=== PATIENT | female | born 1990 | race Two or more races ===

== ENCOUNTER 2024-05-19 21:34 | Emergency (ER) | payer MEDICAID, SELFPAY ==
[2024-05-19 21:36] VITALS: BMI 27.8
[2024-05-19 21:51] VITALS: BP 124/85; PULSE 84; RESP 18; TEMP 36.9; O2SAT 100
--- NOTE | 2024-05-19 21:54 | XR_ITS ---
Examination: CT brain head without contrast. 2-D sagittal coronal reconstructions Date and time of exam:May 19, 2024 1012 hrs. Comparison September 23, 2023 Indications: Onset right-sided body numbness paresthesias beginning today, diagnosis and history multiple sclerosis CTDI: vol (mGy):47.8 DLP: (mGycm):921 Technique: Multiple CT axial sections of the brain have been obtained, 5 mm slice thickness. Contrast has not been administered. 2-D sagittal, coronal reconstructions have been obtained Low dose protocols were performed. One or more of the following dose reduction techniques were used; automated exposure control, adjustment of the mA and/or KV according to patient size, use of iterative reconstruction technique. Findings: No significant ventricular enlargement. Intra-axial or extra-axial hemorrhage density is not seen. No mass effect or midline shift Basal cisterns are not remarkable. Fourth ventricle is midline. Cranial vault intact. Impression: Negative for acute hemorrhage, mass effect or midline shift Brain MRI follow-up would best confirm demyelinating disease and exclude acute ischemic change
--- NOTE | 2024-05-19 21:54 | EKG_ITS ---
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
--- NOTE | 2024-05-19 21:55 | PD.EDRME ---
Rapid Medical Screening Exam RME Arrival date/time: 05/19/24 21:34 33 yo f present to ED for c/o of right side blurry vision/tingling for 1 day I have greeted and performed a focused initial assessment of this patient. A comprehensive ED assessment and evaluation of the patient, analysis of all test results, and completion of the medical decision making process will be conducted by additional ED providers. Chief Complaint: General Adult/Misc Complain Time Seen by Provider: 05/19/24 21:43 Vital signs: Vital Signs Temperature 98.5 F 05/19/24 21:51 Pulse Rate 84 05/19/24 21:51 Respiratory Rate 18 05/19/24 21:51 Blood Pressure 124/85 H 05/19/24 21:51 Pulse Oximetry (%) 100 05/19/24 21:51 Oxygen Delivery Method Room Air 05/19/24 21:51
[2024-05-19 22:44] LABS: Basophils # (Auto) 0.1 Thou/mm3 (0.0-0.2); Basophils % (Auto) 1 % (0-2.5); Eosinophils # (Auto) 0.1 Thou/mm3 (0.0-0.5); Eosinophils % (Auto) 1 % (0-10); Hematocrit 37.8 % (36.0-46.0); Hemoglobin 13.1 g/dL (12.0-16.0); Immature Granulocytes % (Auto) 1 % (0-0); Immature Granulocytes Auto 0.08 Thou/mm3 (0.00-0.00); Lymphocytes # (Auto) 1.3 Thou/mm3 (1.0-4.8); Lymphocytes % (Auto) 12 % (10-50); Mean Corpuscular HGB Conc 34.7 g/dl (31.0-37.0); Mean Corpuscular Hemoglobin 31.1 pg (25.0-35.0); Mean Corpuscular Volume 90 fL (80-100); Monocytes # (Auto) 1.1 Thou/mm3 (0.0-0.8); Monocytes % (Auto) 10 % (0-12); Neutrophils # (Auto) 8.2 Thou/mm3 (1.8-7.7); Neutrophils % (Auto) 75 % (37-80); Nucleated Red Blood Cell % 0 /100 WBC (0); Platelet Count 201 Thou/mm3 (140-440); Red Blood Count 4.21 Miln/mm3 (4.00-5.20); White Blood Count 10.9 Thou/mm3 (3.6-11.0)
[2024-05-19 23:05] LABS: Alanine Aminotransferase 63 U/L (10-49); Albumin, Serum 4.8 gm/dL (3.5-5.0); Albumin/Globulin Ratio 1.8 (1.2-2.2); Alkaline Phosphatase 79 U/L (46-116); Anion Gap 8 (7-16); Aspartate Amino Transferase 37 U/L (0-34); BUN/Creatinine Ratio 11 Ratio (12-20); Bilirubin,Total 0.5 mg/dL (0.3-1.2); Blood Urea Nitrogen 9 mg/dL (9-23); C-Reactive Protein < 0.4 mg/dL (0.0-0.9); Carbon Dioxide 28.2 mMol/L (20.0-31.0); Chloride 101 mMol/L (98-107); Creatinine (Component) 0.8 mg/dL (0.6-1.3); Estimated Creatinine Clearance 89.3 mL/min (>60); Globulin 2.7 gm/dL (2.3-3.5); Glucose 93 mg/dL (74-106); Osmolality,Calculated 272 (275-295); Potassium 3.8 mMol/L (3.4-5.1); Sodium 137 mMol/L (136-145); Total Protein 7.5 gm/dL (5.7-8.2); Troponin I < 0.002 ng/mL (0.0-0.045); eGFR > 60 See Note
[2024-05-19 23:39] LABS: Sed Rate (ESR) 22 mm/hr (0-20)
--- NOTE | 2024-05-20 01:42 | PD.EDADULT ---
ED General RME/HPI General Chief complaint: General Adult/Misc Complain Stated complaint: RIGHT SIDE BODY NUNMBNESS SINCE YESTERDAY Time Seen by Provider: 05/19/24 21:43 Arrival date/time: 05/19/24 21:34 33 year old female present to emergency room with c/o of ongoing headache and report tingling/numbness on right side since yesterday. Denies any trauma or injury LOCATION: right side head SEVERITY: Symptoms are described as being severe with limitations on activities of daily living QUALITY: Symptoms are described as being dull or achy CONTEXT: The patient is unable to identify any inciting events. DURATION/TIMING: The symptoms started approximately ongoing, worsen since yesterday ASSOCIATED SYMPTOMS: The patient is unable to identify any other associated symptoms. MODIFYING FACTORS: The patient is unable to identify any alleviating or aggravating symptoms. PERTINENT ROS: Headache is gradual in onset, not maximal intensity at onset, not associated with syncope or presyncope, not the first or the worst, not associated with head trauma or anticoagulant use, no associated focal neurological deficits, denies associated neck pain, no recent fevers, no unexplained rashes, no recent foreign travel, immunized, no unexplained nausea or vomiting. REVIEW OF SYSTEMS: See History of Present Illness - with the exception of those mentioned in the history of present illness, all other systems reviewed and reported as negative GENERAL: In general the patient is awake, interactive, in an emergency department gurney. HEAD/EYES/EARS/NOSE/THROAT: normo-cephalic, atraumatic, mucus membranes are moist, anicteric, palpebral conjunctiva is pink, trachea is midline. CARDIOVASCULAR: regular rate and regular rhythm, no murmurs, heart sounds are not distant, strong pulses in all four extremities that are equal and symmetric bilateral upper and lower extremities, normal capillary refill. CHEST/PULMONARY: normal chest rise and fall, good air movement, clear to auscultation bilaterally, normal inspiratory to expiratory ratios without evidence of respiratory distress. NECK: No midline/Paraspinal tenderness, no step off ROM/Strenght intact No Kernig and bruzinski sign. No trauma ABDOMEN: soft, not tender, no masses appreciated BACK: normal range of motion without pain. NEUROLOGICAL: cranio-facial features are symmetric, moves all four extremities equally without obvious limitations or weakness. EXTREMITY: no tenderness to palpation over the long bones or large joints of the bilateral upper and lower extremities, no joint swelling, no joint erythema, no signs of trauma, no unilateral leg swelling and no peripheral edema. SKIN: warm, dry, well-perfused, no jaundice, no rash, no telangiectasias or petechia. PSYCH: calm, cooperative, no evidence of psychosis or agitation RME / HPI RME / HPI narrative: 05/19/24 21:34 33 yo f present to ED for c/o of right side blurry vision/tingling for 1 day I have greeted and performed a focused initial assessment of this patient. A comprehensive ED assessment and evaluation of the patient, analysis of all test results, and completion of the medical decision making process will be conducted by additional ED providers. Related Data Home Medications ?Medication ?Instructions ?Recorded ?Confirmed metformin 1,000 mg tablet,extended 1,000 mg PO QDAY 08/21/17 02/06/19 release 24hr (osmotic) ergocalciferol (vitamin D2) 1,250 50,000 unit PO DAILY 06/16/18 02/06/19 mcg (50,000 unit) capsule (Vitamin D2) selenium 50 mcg tablet 50 mcg PO QDAY multiple sclerosis 06/16/18 02/06/19 Previous Rx's ?Medication ?Instructions ?Recorded ibuprofen 800 mg tablet (IBU) 800 mg PO TID PRN pain #30 tabs 02/06/19 tramadol 50 mg tablet 50 mg PO BID #14 tabs 02/09/23 rizatriptan 10 mg tablet (Maxalt) 10 mg PO Q2H PRN migraine headache 07/07/23 #20 tabs ibuprofen 600 mg tablet 600 mg PO Q8H PRN pain #14 tabs 09/23/23 ibuprofen 600 mg tablet 600 mg PO Q8H PRN pain #20 tabs 09/24/23 Allergies Allergy/AdvReac Type Severity Reaction Status Date / Time No Known Allergies Allergy Verified 07/07/23 12:27 Course Course Course Narrative: presents with Headache. No focal neurological symptoms. Neuro exam is benign. Pt is nontoxic. VSS. Based on history and normal neurological exam I have low suspicion for intracranial tumor, intracranial bleed, meningitis, temporal arteritis, glaucoma, CO poisoning. Most likely patient has benign headache, recommend rest, hydration, and ibuprofen. Disposition: Discharge home with strict return precautions and instructions for prompt primary care follow up. Quality Measures none Orders Category Date Time Status EKG (ED ONLY) *Do not use* NOW Care 05/19/24 21:[address] head/brain wo con Stat Exams 05/19/24 21:54 Completed EKG (ED Only) Stat Exams 05/19/24 21:54 Draft CBC Stat Lab 05/19/24 22:05 Completed CMP [Comprehensive Metabolic Panel] Stat Lab 05/19/24 22:05 Completed CRP [C-Reactive Protein] Stat Lab 05/19/24 22:05 Completed ESR [Sed Rate (ESR)] Stat Lab 05/19/24 22:05 Completed Troponin I Stat Lab 05/19/24 22:05 Completed Vital Signs Vital signs: Vital Signs Temperature 98.5 F 05/19/24 21:51 Pulse Rate 84 05/19/24 21:51 Respiratory Rate 18 05/19/24 21:51 Blood Pressure 124/85 H 05/19/24 21:51 Pulse Oximetry (%) 100 05/19/24 21:51 Oxygen Delivery Method Room Air 05/19/24 21:51 Procedures -ED EKG Interpretation #1: Date of EK05/20/24 Rate: 81 Interpretation: Reviewed by me EKG Impression: Normal sinus rhythm, No acute ST-T changes, No ectopy, No ischemic changes, Normal QRS and Normal intervals MDM Patient data External records reviewed:: None Clinical information provided by:: patient Social determinants that could affect healthcare access:: none Patient has the following chronic illnesses:: headache/migraine How is presenting disease/condition affected by chronic disease/condition?: exacerbated by Evaluation data The following diagnostics were reviewed and interpreted by me:: lab results, radiology exam(s) and EKG tracing(s) Lab and/or radiology exams considered but not ordered:: none Interpretation Summary: CT: no acute findings Medications Medications considered but not ordered:: none Medication administrations:: n/a Consultations Consultation(s) initiated? (list below): No Diagnosis Differential Diagnosis ED Complaint MDM: migraine, headache temporal arteritis , TIA, Most likely diagnosis given after review of the tests above:: migraine Admission Indicated Admission indicated?: not indicated Explain why admission is indicated or not indicated:: n/a Admission Request Was there a request for admission?: No Disposition Plan Disposition Plan: Discharge Discharge Attestation Discharge Attestation: The patient and all family members were given an opportunity to ask questions and understood the discharge instructions. Discharge instructions specifically effects, indications for sooner follow up or return to the emergency department, and the expected course of current diagnosis. Patient condition: Stable Medical Decision Making Differential Diagnosis Differential Diagnosis: migraine, headache temporal arteritis , TIA, Lab Data 05/19/24 22:05 05/19/24 22:05 Labs: Lab Results 05/19/24 Range/Units 22:05 WBC 10.9 (3.6-11.0) Thou/mm3 RBC 4.21 (4.00-5.20) Miln/mm3 Hgb 13.1 (12.0-16.0) g/dL Hct 37.8 (36.0-46.0) % MCV 90 (80-100) fL MCH 31.1 (25.0-35.0) pg MCHC 34.7 (31.0-37.0) g/dl RDW Std Deviation 42.0 (36.4-46.3) fL Plt Count 201 (140-440) Thou/mm3 Neut % (Auto) 75 (37-80) % Lymph % (Auto) 12 (10-50) % [place] % (Auto) 10 (0-12) % Eos % (Auto) 1 (0-10) % Baso % (Auto) 1 (0-2.5) % Neut # (Auto) 8.2 H (1.8-7.7) Thou/mm3 Lymph # (Auto) 1.3 (1.0-4.8) Thou/mm3 [place] # (Auto) 1.1 H (0.0-0.8) Thou/mm3 Eos # (Auto) 0.1 (0.0-0.5) Thou/mm3 Baso # (Auto) 0.1 (0.0-0.2) Thou/mm3 Immature Gran # (Auto) 0.08 H (0.00-0.00) Thou/mm3 Absolute Nucleated RBC 0.00 (0.00-0.00) Thou/mm3 Immature Gran % 1 H (0-0) % Nucleated RBC % 0 (0) /100 WBC ESR 22 H (0-20) mm/hr Sodium 137 (136-145) mMol/L Potassium 3.8 (3.4-5.1) mMol/L Chloride 101 (98-107) mMol/L Carbon Dioxide 28.2 (20.0-31.0) mMol/L Anion Gap 8 (7-16) BUN 9 (9-23) mg/dL Creatinine 0.8 (0.6-1.3) mg/dL Estim Creat Clear Calc 89.3 (>60) mL/min eGFR > 60 (60 - ) See Note BUN/Creatinine Ratio 11 L (12-20) Ratio Glucose 93 (74-106) mg/dL Calculated Osmolality 272 L (275-295) Calcium 10.0 (8.3-10.6) mg/dL Corrected Calcium 10.0 (8.5-10.1) mg/dL Total Bilirubin 0.5 (0.3-1.2) mg/dL AST 37 H (0-34) U/L ALT 63 H (10-49) U/L Alkaline Phosphatase 79 (46-116) U/L Troponin I < 0.002 (0.0-0.045) ng/mL C-Reactive Prot, Quant < 0.4 (0.0-0.9) mg/dL Total Protein 7.5 (5.7-8.2) gm/dL Albumin 4.8 (3.5-5.0) gm/dL Globulin 2.7 (2.3-3.5) gm/dL Albumin/Globulin Ratio 1.8 (1.2-2.2) Discharge Plan Plan Patient Disposition: HOME (Self Care) Health Concerns: Follow with PMD as directed Take tylenol or motrin as need Return to ED if sx worsen Prescriptions/Referrals Prescriptions/Med Rec: No Action ibuprofen [IBU] 800 mg tablet 800 mg PO TID PRN (Reason: pain) Qty: 30 0RF metformin 1,000 mg Tablet Extended Release 24 Hr 1,000 mg PO QDAY selenium 50 mcg Tablet 50 mcg PO QDAY ergocalciferol (vitamin D2) [Vitamin D2] 50,000 unit Capsule 50,000 unit PO DAILY rizatriptan [Maxalt] 10 mg tablet 10 mg PO Q2H MDD max of 3 tabs per day PRN (Reason: migraine headache) Qty: 20 0RF Rx Instructions: do not exceed 3 doses per 24 hrs ibuprofen 600 mg tablet 600 mg PO Q8H PRN (Reason: pain) Qty: 14 0RF ibuprofen 600 mg tablet 600 mg PO Q8H PRN (Reason: pain) Qty: 20 0RF tramadol 50 mg tablet 50 mg PO BID Qty: 14 0RF Referrals: Rocky López MD [Primary Care Provider] - In 1 week Problem List Clinical Impression: Migraine Patient/Caregiver Discharge Instructions Education Materials: Headache Migraine Meds Lifestyle Print Language: Urdu Stand Alone Forms: Lydia Award Info., Patient Portal Info Letter
[2024-05-20 01:49] VITALS: RESP 18
== END 2024-05-20 01:50 | disposition home or self-care (01) ==
PROVIDERS: Physician Assistant; Emergency Provider Emergency Medicine; PCP Family Medicine
DX: G43.909 Migraine, unspecified, not intractable, without status migrainosus (principal); R20.2 Paresthesia of skin; R20.0 Anesthesia of skin; G35 Multiple sclerosis
CPT/HCPCS: 36415; 70450; 80053; 84484; 85025; 85652; 86140; 93005; 99284

== ENCOUNTER → 2024-12-02 | Outpatient (CLI) | payer OTHER, SELFPAY ==
--- NOTE | 2024-12-02 15:01 | XR_ITS ---
Examination: Ribs, left, with PA chest, 4 views Technique: Chest PA, RIBS AP, RPO, LPO, 4 views Exam date and time: December 12, 2024 1520 hours INDICATIONS: Patient fell today with injury to the left ribs, rib pain FINDINGS: Normal heart size No pneumothorax. Mild osteopenia. No acute rib fractures IMPRESSION:: No pneumothorax pulmonary contusion or hemothorax No acute rib fractures
--- NOTE | 2024-12-02 15:01 | XR_ITS ---
Examination: Left elbow 3 views Technique: Elbow AP, oblique, lateral 3 views Exam date and time: December 12, 2024 1529 hours INDICATIONS: Patient fell today with injury to the elbow, elbow pain FINDINGS: No elbow fracture or dislocation No elbow effusion IMPRESSION: Negative for fracture.
== END | disposition home or self-care (01) ==
PROVIDERS: PCP Physician Assistant; Referring Provider Family Medicine; Visit Provider Family Medicine
DX: S20.212A Contusion of left front wall of thorax, initial encounter (principal); S59.902A Unspecified injury of left elbow, initial encounter; W19.XXXA Unspecified fall, initial encounter
CPT/HCPCS: 71101; 73080

== ENCOUNTER → 2025-01-02 | Outpatient (CLI) | payer OTHER, SELFPAY ==
--- NOTE | 2025-01-02 15:01 | XR_ITS ---
Examination: Shoulder,left, 3 views Technique: Shoulder AP internal rotation, AP external rotation, Y view shoulder, 3 views Exam date and time :January 02, 2025 1531 hours INDICATIONS: Patient fell one month ago with injury to the shoulder, shoulder pain. FINDINGS: Mild osteopenia. No shoulder fracture or dislocation IMPRESSION: No shoulder fracture or dislocation.
== END | disposition home or self-care (01) ==
PROVIDERS: PCP Family Medicine; Referring Provider Family Medicine; Visit Provider Family Medicine
DX: S49.92XA Unspecified injury of left shoulder and upper arm, initial encounter (principal); W19.XXXA Unspecified fall, initial encounter
CPT/HCPCS: 73030

== ENCOUNTER 2025-02-08 11:22 | Emergency (ER) | payer MEDICAID, SELFPAY ==
[2025-02-08 11:34] VITALS: BP 135/69; PULSE 97; RESP 18; TEMP 37.1; O2SAT 98; BMI 28.3
--- NOTE | 2025-02-08 11:35 | EDRME_ITS ---
Rapid Medical Screening Exam [facility] Arrival date/time: 02/08/25 11:22 34-year-old female with history of MS presents to the emergency department today for complaint of headache and blurred vision ongoing x 2 days Chief Complaint: Headache Vital signs: Vital Signs Temperature 98.7 F 02/08/25 11:34 Pulse Rate 97 02/08/25 11:34 Respiratory Rate 18 02/08/25 11:34 Blood Pressure 135/69 H 02/08/25 11:34 Pulse Oximetry (%) 98 02/08/25 11:34 Oxygen Delivery Method Room Air 02/08/25 11:34
--- NOTE | 2025-02-08 11:35 | XR_ITS ---
Examination: CT brain head without contrast. 2-D sagittal coronal reconstructions Date and time of exam: February 08, 2025, 12 noon COMPARISON: May 19, 2024 INDICATIONS: Onset generalized head pain today CTDI: vol (mGy): 47.8 DLP: (mGycm): 982 Technique: Multiple CT axial sections of the brain have been obtained, 5 mm slice thickness. Contrast has not been administered. 2-D sagittal, coronal reconstructions have been obtained Low dose protocols were performed. One or more of the following dose reduction techniques were used; automated exposure control, adjustment of the mA and/or KV according to patient size, use of iterative reconstruction technique. Findings: No significant ventricular enlargement. Intra-axial or extra-axial hemorrhage density is not seen. No mass effect or midline shift Basal cisterns are not remarkable. Fourth ventricle is midline. Cranial vault intact. Impression: Negative for acute hemorrhage, mass effect or midline shift
[2025-02-08] MEDS: METOCLOPRAMIDE 5 MG TABLET 10 MG PO (11:42)
[2025-02-08] MEDS: HYDROcodone/APAP 5/325 TABLET 1 TAB PO (11:42)
[2025-02-08 12:05] LABS: Basophils # (Auto) 0.1 Thou/mm3 (0.0-0.2); Basophils % (Auto) 1 % (0-2.5); Eosinophils # (Auto) 0.1 Thou/mm3 (0.0-0.5); Eosinophils % (Auto) 1 % (0-10); Hematocrit 44.2 % (36.0-46.0); Hemoglobin 15.2 g/dL (12.0-16.0); Immature Granulocytes Auto 0.04 Thou/mm3 (0.00-0.00); Lymphocytes # (Auto) 1.4 Thou/mm3 (1.0-4.8); Lymphocytes % (Auto) 19 % (10-50); Mean Corpuscular HGB Conc 34.4 g/dl (31.0-37.0); Mean Corpuscular Hemoglobin 31.1 pg (25.0-35.0); Mean Corpuscular Volume 91 fL (80-100); Monocytes # (Auto) 0.7 Thou/mm3 (0.0-0.8); Monocytes % (Auto) 10 % (0-12); Neutrophils # (Auto) 4.9 Thou/mm3 (1.8-7.7); Neutrophils % (Auto) 68 % (37-80); Nucleated Red Blood Cell # 0.00 Thou/mm3 (0.00-0.00); Nucleated Red Blood Cell % 0 /100 WBC (0); Platelet Count 228 Thou/mm3 (140-440); RDW Standard Deviation 41.2 fL (36.4-46.3); Red Blood Count 4.88 Miln/mm3 (4.00-5.20); White Blood Count 7.2 Thou/mm3 (3.6-11.0)
[2025-02-08 12:22] LABS: HCG,Qualitative Serum Negative
[2025-02-08 12:24] LABS: Sed Rate (ESR) 19 mm/hr (0-20)
[2025-02-08 12:43] LABS: Alanine Aminotransferase 45 U/L (10-49); Albumin, Serum 5.0 gm/dL (3.5-5.0); Albumin/Globulin Ratio 1.8 (1.2-2.2); Alkaline Phosphatase 86 U/L (46-116); Anion Gap 10 (7-16); Aspartate Amino Transferase 27 U/L (0-34); BUN/Creatinine Ratio 12 Ratio (12-20); Bilirubin,Total 1.1 mg/dL (0.3-1.2); Blood Urea Nitrogen 11 mg/dL (9-23); Calcium 9.8 mg/dL (8.3-10.6); Calcium (Corrected) 9.8 mg/dL (8.5-10.1); Carbon Dioxide 28.2 mMol/L (20.0-31.0); Chloride 103 mMol/L (98-107); Creatinine (Component) 0.9 mg/dL (0.6-1.3); Estimated Creatinine Clearance 79.4 mL/min (>60); Globulin 2.8 gm/dL (2.3-3.5); Glucose 100 mg/dL (74-106); Osmolality,Calculated 280 (275-295); Potassium 3.9 mMol/L (3.4-5.1); Sodium 141 mMol/L (136-145); Total Protein 7.8 gm/dL (5.7-8.2); eGFR > 60 See Note
[2025-02-08 12:45] LABS: C-Reactive Protein < 0.5 mg/dL (0.0-0.9)
--- NOTE | 2025-02-08 13:22 | PC.NURSE ---
PT SIGNED OUT AMA, EDUCATED ON RISK. PT GCS 15 AT TIME OF EDUCATION OF LEAVING AMA. PT AMBULATES INDEPENDENTLY W/STEADY GAIT
== END 2025-02-08 13:23 | disposition left against medical advice (07) ==
LOC: SERX 14:28
PROVIDERS: Nurse Practitioner Primary Care; Emergency Provider Emergency Medicine
DX: Z53.21 Procedure and treatment not carried out due to patient leaving prior to being seen by health care provider (principal)
CPT/HCPCS: 36415; 70450; 80053; 84703; 85025; 85652; 86140; 99283; A9270